=== PATIENT | female | born 1995 | race Caucasian/White ===

== ENCOUNTER 2019-04-08 07:38 | Emergency (ER) | payer OTHER ==
[~2019-04-08] VITALS: Ht 149.9 cm; Wt 57.6 kg
[2019-04-08 07:52] VITALS: BP 152/99; Ht 149.9 cm; Wt 57.6 kg
== END 2019-04-08 10:20 | disposition home or self-care (01) ==
LOC: ED 07:38
DX: J06.9 Acute upper respiratory infection, unspecified (principal)

== ENCOUNTER 2019-04-12 20:41 | Emergency (ER) | payer OTHER ==
[~2019-04-12] VITALS: Ht 149.9 cm; Wt 56.8 kg
[2019-04-12 21:01] VITALS: BP 146/106; Ht 149.9 cm; Wt 56.8 kg
== END 2019-04-12 22:50 | disposition home or self-care (01) ==
LOC: ED 20:41
DX: H66.91 Otitis media, unspecified, right ear (principal); R03.0 Elevated blood-pressure reading, without diagnosis of hypertension; R05 Cough; R09.81 Nasal congestion